=== PATIENT | male | born 1955 | race Caucasian/White ===

== ENCOUNTER 2017-06-07 15:12 | Emergency (ER) | payer MEDICARE, MEDICAID ==
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
[2017-06-07 15:41] VITALS: BP 160/74
== END 2017-06-07 16:45 | disposition home or self-care (01) ==
LOC: KA.ED 15:12
DX: S09.93XA Unspecified injury of face, initial encounter (principal); E78.00 Pure hypercholesterolemia, unspecified; I10 Essential (primary) hypertension; F17.210 Nicotine dependence, cigarettes, uncomplicated; Z79.82 Long term (current) use of aspirin; Z79.899 Other long term (current) drug therapy; W22.8XXA Striking against or struck by other objects, initial encounter
CPT/HCPCS: 99283

== ENCOUNTER 2017-07-09 13:15 | Emergency (ER) | payer MEDICARE, MEDICAID ==
[2017-07-09 13:33] VITALS: BP 166/92
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
== END 2017-07-09 15:35 ==
LOC: KA.ED 13:15
DX: I12.9 Hypertensive chronic kidney disease with stage 1 through stage 4 chronic kidney disease, or unspecified chronic kidney disease (principal); N17.9 Acute kidney failure, unspecified; N18.9 Chronic kidney disease, unspecified; R09.02 Hypoxemia; R79.89 Other specified abnormal findings of blood chemistry; E78.00 Pure hypercholesterolemia, unspecified; F17.210 Nicotine dependence, cigarettes, uncomplicated; Z79.82 Long term (current) use of aspirin; Z79.899 Other long term (current) drug therapy; Z99.2 Dependence on renal dialysis
CPT/HCPCS: 36415; 80053; 85025; 99284; 99285